=== PATIENT | male | born 1995 | race Caucasian/White ===

== ENCOUNTER 2017-05-25 23:48 | Emergency (ER) | payer OTHER ==
[~2017-05-25] VITALS: Ht 180.3 cm; Wt 77.1 kg
[2017-05-25 23:55] VITALS: BP 124/69
--- NOTE | 2017-05-26 00:56 | NUR ---
PT TAKEN TO BED 7
--- NOTE | 2017-05-26 01:35 | NUR ---
22/M CAME IN WITH LAC TO LT THUMB S/P CUT FROM OPENING GLASS BOTTLE. DENIES ANY PAIN AT THIS TIME, BLEEDING CONTROLLED. +PMSC TO LT HAND. DENIES PMH/RX/OTC. IMMUNIZATION NUTD.
[2017-05-26] MEDS ORDERED: LIDOCAINE 1% ***ER ONLY *** 50 ML ONE (01:56)
--- NOTE | 2017-05-26 02:00 | NUR ---
Patient has a ~2.5 cm laceration to LT THUMB. Dr. ADAME applied sutures using sterile technique. Edges well approximated. Site cleansed with BETADINE AND SW. No bleeding noted. Pt tolerated well.
[2017-05-26] MEDS ORDERED: NEOMYCIN/POLYMYXIN/BACITRACIN 0.9 GM/1 PKT TP ONE (02:05)
[2017-05-26] MEDS ORDERED: LIDOCAINE 1% ***ER ONLY *** 10 MG/ML VIAL INJ ONE (02:05)
[2017-05-26 02:50] VITALS: BP 128/72
--- NOTE | 2017-05-26 02:50 | NUR ---
Patient discharged with v/s stable. Written and verbal after care instructions given and explained BY DR ADAME. Patient alert, oriented and verbalized understanding of instructions. Ambulatory with steady gait. All questions addressed prior to discharge. ID band removed. Patient advised to follow up with PMD. Rx of KEFLEX given. Patient educated on indication of medication including possible reaction and side effects. Opportunity to ask questions provided and answered.
== END 2017-05-26 02:50 | disposition home or self-care (01) ==
LOC: MED 23:48
DX: S61.012A Laceration without foreign body of left thumb without damage to nail, initial encounter (principal); R03.0 Elevated blood-pressure reading, without diagnosis of hypertension; J45.909 Unspecified asthma, uncomplicated; W25.XXXA Contact with sharp glass, initial encounter; Y93.89 Activity, other specified; Y92.89 Other specified places as the place of occurrence of the external cause; Y99.8 Other external cause status
CPT/HCPCS: 12001; 73140; 90471; 90715; 99284; J2001